=== PATIENT | female | born 1940 | race Caucasian/White ===

== ENCOUNTER → 2016-12-09 | Outpatient (CLI) | payer MEDICARE, BC ==
[~2016-12-09] MED LIST: ASPIR-TRIN325 MG PO; BENZONATATE PO; CALCIUM + D 6001 TA1 PO; FISH OIL 1,2001 CAP PO; FUROSEMIDE40 MG PO; ISOSORBIDE DINI30 MG PO; LORTAB 5/500 TA1 TA1 PO; LORTAB 5/500 TA1 TA2 PO; LOTREL 5/401 CAP PO; METOPROLOL TAR25 MG PO; NATURAL VITA400 UNI2 PO; NITROGLYGERIN0.4 MG SL; POTASSIUM CHLO10 ME2 PO; TYLOX1 CAP 5/50 PO; VIT E; ZANAFLEX4 M1 PO; ZANTAC150 M1 PO
--- NOTE | ~2016-12-09 | CR150 ---
[facility] A Service of [facility] & [facility] RADIOLOGY TEXT RESULTS PATIENT: DIDI CORTES LOCATION: [facility] : 44 UNIT #: [id number] AGE: [address]: YANIRA WHARTON APRN SEX: F ORDER DR: [id number] [address] [address] [id number] O MR#: [id number] Acc #: [id number] NAME: DIDI CORTES : 1940 SEX: F STUDY DATE/TIME: 12/09/2016 12:43 UNIT: [facility] ROOM: STUDY DESCRIPTION: CR Hip Min 2 Views Lt Attending Physician: Yanira Wharton Aprn Ordering Physician: Yanira Wharton Aprn Primary Care Physician: Yaritza Thornton M.D. MEDICAL IMAGING REPORT This report is preliminary unless electronic signature is present. EXAM Left hip 12/09/2016 HISTORY 76-year-old female with left hip pain since 12/05/2016. No specific injury. COMPARISON STUDIES CT abdomen and pelvis 10/07/2011. FINDINGS 3 views of the left hip demonstrate no acute fracture or dislocation. Joint spaces are normally maintained. Bony pelvis intact. Sacrum and SI joints intact. Bilateral iliac stents. Soft tissues are unremarkable. IMPRESSION Unremarkable left hip. Dictated by... Calin Calle M.D. THIS IS AN ELECTRONICALLY VERIFIED REPORT Calin Calle M.D. at 12/10/2016 1:51 PM TIM/kelsey TD: 12/09/2016 18:31 JOB #: [id number] MEDICAL IMAGING REPORT Page 1 of 1
== END | disposition home or self-care (01) ==
LOC: SRAD 12:31
DX: M25.552 Pain in left hip (principal)
CPT/HCPCS: 73502

== ENCOUNTER → 2016-12-18 | Outpatient (CLI) | payer MEDICARE, BC ==
--- NOTE | ~2016-12-18 | BD1 ---
[facility] A Service of [facility] & [facility] RADIOLOGY TEXT RESULTS PATIENT: DIDI CORTES LOCATION: [facility] : 44 UNIT #: [id number] AGE: [address]: Yaritza Thornton MD SEX: F ORDER DR: [id number] [facility] [address] [place], [place] [address] [id number] O MR#: [id number] Acc #: [id number] NAME: DIDI CORTES : 1940 SEX: F STUDY DATE/TIME: 12/18/2016 12:24 UNIT: [facility] ROOM: STUDY DESCRIPTION: BD Dexa Bone Dens 1+ Site Attending Physician: Yaritza Thornton M.D. Referring Physician: Yaritza Thornton M.D. Ordering Physician: Yaritza Thornton M.D. Primary Care Physician: Yaritza Thornton M.D. MEDICAL IMAGING REPORT This report is preliminary unless electronic signature is present EXAM DXA scan 12/18/2016 HISTORY Status post menopause with no hormone replacement therapy. Osteopenia and arthritis. Hypertension with blood pressure medication. Fractured ankle last 10 years. Smoking history for 50 years. FINDINGS Bone mineral density in the lumbar spine from L1-L4 is 0.841 g/cm2 which is 1.9 standard deviations below the mean when compared to the young adult reference population which is characteristic of osteopenia. This is 0.5 standard deviations above the mean when compared to the age-matched population. Bone mineral density in the left femoral neck was 0.62 g/cm2 which is 2.1 standard deviations below the mean when compared to the young adult reference population which is characteristic of osteopenia. This is 0 standard deviations from mean when compared to the age-matched population. IMPRESSION Bone mineral density in the lumbar spine and the left hip characteristic of osteopenia. Dictated by... Eitan Conway M.D. THIS IS AN ELECTRONICALLY VERIFIED REPORT Eitan Conway M.D. at 12/23/2016 12:01 PM KRT/pcl TD: 12/18/2016 20:12 [facility] A Service of [facility] & [facility] RADIOLOGY TEXT RESULTS PATIENT: DIDI CORTES LOCATION: [facility] : 44 UNIT #: [id number] AGE: [address]: Yaritza Thornton MD SEX: F ORDER DR: JOB #: [id number] MEDICAL IMAGING REPORT Page 1 of 1 COPY
== END | disposition home or self-care (01) ==
LOC: CWCC 11:55
DX: M81.0 Age-related osteoporosis without current pathological fracture (principal); M85.89 Other specified disorders of bone density and structure, multiple sites
CPT/HCPCS: 77080